=== PATIENT | male | born 1960 | race American Indian/Alaskan Native ===

== ENCOUNTER 2019-03-28 08:38 | Day surgery (SDC) | payer OTHER ==
--- NOTE | 2019-03-28 07:24 | Anesthesia Day of Surgery ---
Anesthesia Day of Surgery - Day of Surgery Patient Examined: Yes Patient H&P Reviewed: Yes Patient is NPO: Yes
[~2019-03-28 08:38] MED LIST: NACL 0.9% 1000 ML 1,000 ML IV SCH
[2019-03-28] MEDS ORDERED: NEO-SYNEPHRINE ONE (09:00)
[2019-03-28] MEDS ORDERED: WATER FOR IRRIG STERILE IR ONE (09:38)
--- NOTE | 2019-03-28 09:53 | Anesthesia Consultation ---
Anesthesia Consult and Med Hx Date of service: 03/28/19 - Airway Anesthetic Teeth Evaluation: Good ROM Head & Neck: Adequate Mental/Hyoid Distance: Adequate Mallampati Class: Class I Intubation Access Assessment: Good - Pulmonary Exam CTA: Yes - Cardiac Exam Cardiac Exam: RRR - Pre-Operative Health Status ASA Pre-Surgery Classification: ASA2 Proposed Anesthetic Plan: MAC - Pre-Anesthesia Comment Pre-Anesthesia Comments: Prolong wake up after anesthesia - Pulmonary Hx Sleep Apnea: Yes - Central Nervous System Hx Back Pain: Yes - Endocrine Hx Hypothyroidism: Yes
[2019-03-28] MEDS ORDERED: XYLOCAINE 2% INFILTRATI ONE (12:11)
[2019-03-28] MEDS ORDERED: DIPRIVAN 10 MG/ML IV ONE ×2 (12:11)
--- NOTE | 2019-03-28 12:31 | Operative Report ---
Operative Report Operative Report: Date of procedure: 03/28/2019 Procedure: Colonoscopy. Attending physician: Bi Dhillon MD Producer Arborist Manager: Bi Dhillon MD Indication: Patient is a 59-year-old male who presents for colonoscopy for colorectal cancer screening. A colonoscopy serves to evaluate patient so that treatment may be directed based on the findings. Consent: Informed consent was obtained after advising the patient and family regarding nature of this procedure, its indications, potential benefits as well as possible complications including but not limited to bleeding perforation and adverse reaction to medication, infection as well as other cardiopulmonary complications. An informed written and verbal consent was then obtained after due opportunity was provided for questions and answers. Monitoring: Patient was monitored continuously with pulse oximetry and electrocardiographic recordings as well as blood pressure recordings. Vital signs remained stable throughout this procedure with no untoward events. Preoperative assessment: Patient was assessed immediately prior to this procedure for capacity to tolerate monitored anesthesia care and moderate sedation as well as general anesthesia. Patient's ASA classification is 2, Mallampati class is 2, Hyomental distance is 3. Instrument: Olympus video colonoscope Medications: Propofol given intravenously in divided doses. For details please refer to anesthesia records. Description of procedure: Patient was placed in the left lateral decubitus position after achieving sedation, a digital rectal examination was performed following which the colonoscope was introduced into the anal verge and advanced to the cecum which was identified by the ileocecal valve, the appendiceal orifice, as well as by the cecal strap and direct transillumination. The colonoscope was subsequently withdrawn with careful inspection of all mucosal surfaces. Patient tolerated this procedure well and was subsequently taken to the recovery room. The following findings were noted. Findings: The preparation was adequate. The entirety of the colon was normal. On the retroflex view at the anal verge, patient had internal hemorrhoids. Impression:Internal hemorrhoids otherwise normal colonoscopy. Plan: High-fiber diet. Repeat colonoscopy in 10 years.
--- NOTE | 2019-03-28 12:38 | Discharge Summary ---
Short Stay Discharge Plan Activity: advance as tolerated Weight Bearing Status: Weight Bear as Tolerated Diet: regular Additional Instructions: Post Sedation D/C Instructions When you return home you may resume your regular diet unless otherwise directed. -Go directly home from the hospital and rest quietly . You may resume normal activities tomorrow. - Do NOT drive, return to work, operate any machinery or make any important personal or business decisions today. -Do NOT drink any alcohol or take nerve or sleeping drugs. They add to the effects of the medicine still present in your body. Follow up with: AURORA MARAVILLA MD [Primary Care Provider] - 7 Days
[2019-03-28 13:01] VITALS: BP 116/92
== END 2019-03-28 08:39 | disposition home or self-care (01) ==
LOC: GIO 08:38
PROVIDERS: ATTEND Internal Medicine Gastroenterology
DX: Z12.11 Encounter for screening for malignant neoplasm of colon (principal); K64.8 Other hemorrhoids; E11.9 Type 2 diabetes mellitus without complications; G47.30 Sleep apnea, unspecified; E03.9 Hypothyroidism, unspecified; Z88.5 Allergy status to narcotic agent; Z79.84 Long term (current) use of oral hypoglycemic drugs
CPT/HCPCS: 45378; 82962; J2370; J2704; J7030

== ENCOUNTER 2019-11-14 09:38 | Outpatient (CLI) | payer OTHER ==
--- NOTE | 2019-11-14 10:26 | XRay Report ---
LUMBOSACRAL SPINE 3 VIEWS INDICATION: BACK PAIN. COMPARISON: None. IMPRESSION: There is minimal dextrocurvature of the lumbar spine on the frontal view. Mild multilev el degenerative disc disease and facet arthropathy are identified throughout the lumbar region. The s acrum and SI joints are unremarkable. No acute osseous or soft tissue abnormality. Signer Name: Solitario Rojas Jr, MD Signed: 11/14/2019 10:22 AM Workstation Name: [id number]
== END 2019-11-14 09:39 | disposition home or self-care (01) ==
LOC: XRAY 09:38
PROVIDERS: ATTEND Internal Medicine
DX: M51.36 Other intervertebral disc degeneration, lumbar region (principal); M47.816 Spondylosis without myelopathy or radiculopathy, lumbar region; F43.10 Post-traumatic stress disorder, unspecified; F32.9 Major depressive disorder, single episode, unspecified
CPT/HCPCS: 72100